=== PATIENT | male | born 1960 | race Caucasian/White ===

== ENCOUNTER 2021-05-17 06:07 | Emergency (ER) | payer OTHER, BC ==
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
--- NOTE | 2021-05-17 07:46 | CR ---
Right ankle: 4 views of the right ankle were obtained. Comparison: No prior ankle study is available. Old fracture is noted within the distal diaphysis of the tibia and fibula. Bridging callus is seen. There is also bony fusion between the fibula and tibia which appears old. Small plantar spur is noted. No acute fracture, dislocation or other bony abnormality is seen. Impression: 1. Old healed trauma. 2. Plantar spur. 3. No acute osseous abnormality is appreciated. Diagnostic code #2
== END 2021-05-17 08:10 | disposition home or self-care (01) ==
LOC: JD.ED 06:07
DX: S93.401A Sprain of unspecified ligament of right ankle, initial encounter (principal); I10 Essential (primary) hypertension; I25.2 Old myocardial infarction; Z87.891 Personal history of nicotine dependence; Z88.5 Allergy status to narcotic agent; V29.9XXA Motorcycle rider (driver) (passenger) injured in unspecified traffic accident, initial encounter
CPT/HCPCS: 73610-26-RT; 73610-RT; 99284-25

== ENCOUNTER 2024-07-27 11:52 | Emergency (ER) | payer BC, MEDICARE ==
[2024-07-27] MEDS: Ondansetron 4 MG/2 ML SDV IVPUSH ONE (12:32)
[2024-07-27] MEDS: Lactated Ringers 1,000 ML IV SCH (12:33)
[2024-07-27 12:40] LABS: BASOPHILS PERCENT AUTO 0.2 % (0.0-1.0); EOSINOPHILS PERCENT AUTO 0.1 % (0.0-6.0); HEMATOCRIT 36.2 % (42.0-52.0); HEMOGLOBIN 12.3 gm/dl (14.0-18.0); IMMATURE GRAN ABSOLUTE AUTO 0.08 K/mm3 (0.00-0.05); IMMATURE GRAN PERCENT AUTO 0.6 % (0.0-0.4); LYMPHOCYTES ABSOLUTE AUTO 0.9 K/mm3 (1.0-4.8); LYMPHOCYTES PERCENT AUTO 6.3 % (24.0-44.0); MEAN CORPUSCULAR HEMOGLOBIN 30.8 pg (28.0-32.0); MEAN CORPUSCULAR VOLUME 90.5 fl (83.0-99.0); MEAN PLATELET VOLUME 9.6 fl (9.4-12.4); MONOCYTES ABSOLUTE AUTO 1.4 K/mm3 (0.0-0.8); MONOCYTES PERCENT AUTO 9.9 % (0.0-8.0); NEUTROPHILS ABSOLUTE AUTO 11.5 K/mm3 (1.8-7.7); NEUTROPHILS PERCENT AUTO 82.9 % (41.0-71.0); PLATELET COUNT,PLT 136 K/mm3 (150-400); WHITE BLOOD CELL COUNT,WBC 13.89 K/mm3 (3.9-11.3)
[2024-07-27 13:08] LABS: A/G RATIO 0.9 (1-2); ALBUMIN 3.3 g/dl (3.4-5.0); ANION GAP 14.9 (5-15); BILIRUBIN TOTAL 0.8 mg/dL (0.2-1.0); CALCIUM 8.1 mg/dL (8.5-10.1); EST CRCL DRUG DOSING (CG) 64.06 mL/min; MAGNESIUM 1.7 mg/dL (1.8-2.4); POTASSIUM,K 3.9 mEq/L (3.5-5.1); PROTEIN TOTAL,TP 6.8 g/dl (6.4-8.2)
[2024-07-27] MEDS: Tenecteplase 50 MG Kit IV ONE (13:30)
[2024-07-27] MEDS: Tenecteplase 50 MG Kit ONE (13:34)
[2024-07-27] MEDS: Aspirin 81 MG Tab.Chew PO ONE (13:37)
[2024-07-27 13:44] LABS: INR 1.04
[2024-07-27 13:45] LABS: PTT,PARTIAL THROMBOPLSTIN TIME 24.8 SECONDS (21.7-31.4)
[2024-07-27] MEDS: Heparin Sodium/D5W 250 ML IV SCH (13:47)
[2024-07-27] MEDS: Heparin Sodium 5,000 Units/ML Vial IVPUSH ONE (13:47)
[2024-07-27] MEDS ORDERED: Naloxone 0.4 MG/ML SDV IVPUSH PRN (13:53)
[2024-07-27] MEDS: Morphine 2 MG/ML SYRINGE IVPUSH ONE (14:03)
== END 2024-07-27 14:20 ==
LOC: JD.ED 11:52
DX: I21.3 ST elevation (STEMI) myocardial infarction of unspecified site (principal); R55 Syncope and collapse; I25.10 Atherosclerotic heart disease of native coronary artery without angina pectoris; E78.00 Pure hypercholesterolemia, unspecified; I10 Essential (primary) hypertension; Z79.82 Long term (current) use of aspirin; Z79.899 Other long term (current) drug therapy; Z88.5 Allergy status to narcotic agent; Z88.8 Allergy status to other drugs, medicaments and biological substances
CPT/HCPCS: 36415; 70450; 72125; 80053; 83735; 84484; 85025; 85610; 85730; 93005; 96361; 96365; 96375; 99285; A9270; J1644; J2270; J2405; J3101; J7120